=== PATIENT | female | born 2000 | race Caucasian/White ===

== ENCOUNTER 2020-02-17 13:44 | Emergency (ER) | payer OTHER ==
[2020-02-17 15:51] LABS: HEMOGLOBIN 14.8 gm/dl (12.3-15.3); RED BLOOD COUNT 4.64 M/UL (4.00-5.10); WHITE BLOOD COUNT 4.9 K/UL (4.5-11.0)
[2020-02-17 16:07] LABS: BUN/CREATININE RATIO 13 (0-10)
[2020-02-17] MEDS ORDERED: OMNICEF 300 MG300 MG PO (16:48)
[2020-02-17] MEDS ORDERED: ZITHROMAX250 MG PO (16:48)
== END 2020-02-17 17:00 | disposition home or self-care (01) ==
LOC: ER1 13:44
PROVIDERS: Physician Assistant
DX: J18.9 Pneumonia, unspecified organism (principal); Z86.14 Personal history of Methicillin resistant Staphylococcus aureus infection
CPT/HCPCS: 71045; 80053; 81001; 85025; 87081; 87086; 87880; 99285; J7030

== ENCOUNTER 2021-01-27 11:03 | Emergency (ER) | payer OTHER ==
[~2021-01-27 11:03] MED LIST: OMNICEF 300 MG300 MG PO; ZITHROMAX250 MG PO
[2021-01-27 12:56] LABS: HEMOGLOBIN 14.2 gm/dl (12.3-15.3); RED BLOOD COUNT 4.24 M/UL (4.00-5.10)
[2021-01-27 13:13] LABS: BUN/CREATININE RATIO 16 (0-10)
[2021-01-27] MEDS ORDERED: OMNICEF 300 MG300 MG PO (16:05)
[2021-01-27] MEDS ORDERED: CELEBREX100 MG PO (16:05)
== END 2021-01-27 16:15 | disposition home or self-care (01) ==
LOC: ER1 11:03
PROVIDERS: Physician Assistant
DX: N83.202 Unspecified ovarian cyst, left side (principal); N39.0 Urinary tract infection, site not specified; F17.290 Nicotine dependence, other tobacco product, uncomplicated
CPT/HCPCS: 80048; 81001; 84703; 85025; 87077; 87086; 87186; 96374; 99284; J1885